=== PATIENT | male | born 1990 | race Caucasian/White ===

== ENCOUNTER 2018-03-13 10:44 | Emergency (ER) | payer SELFPAY ==
[2018-03-13] MEDS ORDERED: BUPIVACAINE 0.5% PF 10 ML VIAL ONE (11:04)
[2018-03-13] MEDS ORDERED: TETANUS & DIPHTHERIA TOX,ADULT 0.5 ML VIAL ONE (11:06)
--- NOTE | 2018-03-13 12:00 | EDPHYS ---
Physician Documentation [facility] Name: Ned Bryant Age: 27 yrs Sex: Male : 1990 Arrival Date: 03/13/2018 Time: 10:47 Bed 14 Private MD: None, None ED Physician Sohan Montejo HPI: 03/13 11:00 This 27 yrs old Male presents to ER via Ambulatory with complaints of Arm jmm Injury. 11:00 The patient or guardian complains of injury, a laceration. The complaints affect the jmm dorsal aspect of left forearm. Onset: The symptoms/episode began/occurred acutely, just prior to arrival. Modifying factors: The symptoms are alleviated by nothing. the symptoms are aggravated by nothing. Associated signs and symptoms: Pertinent negatives: deformity, erythema, fever. This is a 27 year old male with no chronic medical conditions that presents to the ED with a left arm laceration. The patient states that an AC coil scrapped his forearm while working on an AC UNIT. Patient is not UTD on tetanus immunzation. . Historical: - Allergies: 11:01 No Known Allergies; ph - Home Meds: 11: None [Active]; ph - PMHx: 11:01 None; ph - PSHx: 11:01 Knee surgery; ph - Immunization history:: Last tetanus immunization: unknown. - Social history:: Smoking status: Patient uses tobacco products, smokes one-half pack cigarettes per day. - Ebola Screening: : No symptoms or risks identified at this time. ROS: 11:00 Constitutional: Negative for fever, chills, and weight loss, Cardiovascular: Negative jmm for chest pain, palpitations, and edema, Respiratory: Negative for shortness of breath, cough, wheezing, and pleuritic chest pain. 11:00 MS/extremity: Positive for laceration. 11:00 Skin: Positive for laceration(s). 11:00 All other systems are negative. Exam: 11:00 Constitutional: This is a well developed, well nourished patient who is awake, alert, jmm and in no acute distress. Head/Face: atraumatic. Chest/axilla: Normal chest wall appearance and motion. Cardiovascular: Regular rate and rhythm. No edema appreciated Respiratory: Normal respirations, no respiratory distress appreciated Abdomen/GI: Non distended, soft Back: Normal ROM 11:00 Musculoskeletal/extremity: 6 cm laceration noted to the left forearm, FROM appreciated, no bony tenderness, compartments are soft, NVI. 11:00 Skin: Appearance: Color: normal in color. 11:00 Neuro: Orientation: is normal, Mentation: is normal, Memory: is normal, Gait: is steady. 11:00 Psych: Behavior/mood is pleasant, cooperative. Vital Signs: 11:00 BP 119 / 86; Pulse 71; Resp 18; Temp 97.9; Pulse Ox 98% on R/A; Weight 113.4 kg; Height ph 5 ft. 11 in. (180.34 cm); Pain 6/10; 12:08 BP 110 / 86; Pulse 67; Resp 16; Pulse Ox 99% on R/A; mb3 11:00 Body Mass Index 34.87 (113.40 kg, 180.34 cm) ph Laceration: 11:00 Wound Repair of 6cm ( 2.4in ) subcutaneous laceration to dorsal aspect of left forearm. jmm Distal neuro/vascular/tendon intact. Anesthesia: Local anesthetic administered with 5 mls of 0.5% marcaine. Wound prep: Moderate cleansing with betadine by ok, Copious irrigation. Skin closed with 12 4-0 Prolene using simple sutures and sterile technique. Dressed with non-adherent dressing. Patient tolerated well. MDM: 11:01 Patient medically screened. alvin 11:57 Data reviewed: vital signs, nurses notes. Counseling: I had a detailed discussion with alvin the patient and/or guardian regarding: the historical points, exam findings, and any diagnostic results supporting the discharge/admit diagnosis, the presence of at least one elevated blood pressure reading (>120/80) during this emergency department visit, the need for outpatient follow up, to return to the emergency department if symptoms worsen or persist or if there are any questions or concerns that arise at home. Administered Medications: 11:05 Drug: Tetanus-Diphtheria Toxoid Adult 0.5 ml {Casting Supervisor: Zhenai. Exp: mb3 05/14/2020. Lot #: [id number]. } Route: IM; Site: right deltoid; 12:10 Follow up: Response: No adverse reaction mb3 Disposition: 18:05 Co-signature as Attending Physician, Sohan Montejo MD. rn Disposition: 03/13/18 12:00 Discharged to Home. Impression: Forearm Laceration. - Condition is Stable. - Discharge Instructions: Laceration Care, Adult. - Medication Reconciliation Form, Thank You Letter, Antibiotic Education, Prescription Opioid Use form. - Follow up: Private Physician; When: 7 - 10 days; Reason: Recheck today's complaints, Continuance of care, Staple/Suture removal, Re-evaluation by your physician. Signatures: Jaun Dale PA PA jmm Nieto, Roman, MD MD rn Hall, Patricia, RN RN Dario Hernandez RN RN mb3 Corrections: (The following items were deleted from the chart) 12:10 12:00 03/13/2018 12:00 Discharged to Home. Impression: Forearm Laceration. Condition is mb3 Stable. Forms are Medication Reconciliation Form, Thank You Letter, Antibiotic Education, Prescription Opioid Use. Follow up: Private Physician; When: 7 - 10 days; Reason: Recheck today's complaints, Continuance of care, Staple/Suture removal, Re-evaluation by your physician. alvin
--- NOTE | 2018-03-13 12:00 | ER ---
Nurse's Notes [facility] Name: Ned Bryant Age: 27 yrs Sex: Male : 1990 Arrival Date: 03/13/2018 Time: 10:47 Bed 14 Private MD: None, None Diagnosis: Forearm Laceration Presentation: 03/13 10:58 Presenting complaint: Patient states: I was rolling coil at work and a piece of it ph sliced my arm ..Laceration noted to posterior aspect of R forearm, bleeding controlled, CMS intact. Transition of care: patient was not received from another setting of care. Onset of symptoms was March 13, 2018. Risk Assessment: Do you want to hurt yourself or someone else? Patient reports no desire to harm self or others. Initial Sepsis Screen: Does the patient meet any 2 criteria? No. Patient's initial sepsis screen is negative. Does the patient have a suspected source of infection? No. Patient's initial sepsis screen is negative. Care prior to arrival: None. 10:58 Method Of Arrival: Ambulatory 10:58 Acuity: PANCHITO 4 ph Historical: - Allergies: 11:01 No Known Allergies; ph - Home Meds: 11:01 None [Active]; ph - PMHx: 11:01 None; ph - PSHx: 11:01 Knee surgery; ph - Immunization history:: Last tetanus immunization: unknown. - Social history:: Smoking status: Patient uses tobacco products, smokes one-half pack cigarettes per day. - Ebola Screening: : No symptoms or risks identified at this time. Screenin:09 Abuse screen: Denies threats or abuse. Nutritional screening: No deficits noted. mb3 Tuberculosis screening: No symptoms or risk factors identified. Fall Risk None identified. Assessment: 11:07 General: Appears in no apparent distress. comfortable, Behavior is calm, cooperative, mb3 appropriate for age. Pain: Complains of pain in palmar aspect of left forearm. Neuro: No deficits noted. Cardiovascular: No deficits noted. Respiratory: No deficits noted. GI: No deficits noted. No signs and/or symptoms were reported involving the gastrointestinal system. : No deficits noted. No signs and/or symptoms were reported regarding the genitourinary system. Musculoskeletal: No deficits noted. No signs and/or symptoms reported regarding the musculoskeletal system. Circulation, motion, and sensation intact. Capillary refill < 3 seconds, Range of motion: intact in all extremities. Injury Description: Laceration sustained to palmar aspect of left forearm is 2.6 to 7.5 cm long, not bleeding, was sustained 30-60 minutes ago. a small amount of bleeding noted at this time. Vital Signs: 11:00 BP 119 / 86; Pulse 71; Resp 18; Temp 97.9; Pulse Ox 98% on R/A; Weight 113.4 kg; Height ph 5 ft. 11 in. (180.34 cm); Pain 6/10; 12:08 BP 110 / 86; Pulse 67; Resp 16; Pulse Ox 99% on R/A; mb3 11:00 Body Mass Index 34.87 (113.40 kg, 180.34 cm) ph ED Course: 10:47 Patient arrived in ED. sb2 10:47 None, None is Private Physician. sb2 10:53 Jaun Dale PA is PHCP. [facility] 10:53 Sohan Montejo MD is Attending Physician. [facility] 10:55 Dario Garcia, IVY is Primary Nurse. mb3 11:00 Triage completed. ph 11:01 Arm band placed on. ph 11:01 Patient has correct armband on for positive identification. Bed in low position. Call ph light in reach. Side rails up X 1. Pulse ox on. NIBP on. 12:09 Assist provider with laceration repair using sutures. Set up tray. Performed by Jaun DESIR Dressed with 4X4s, Adaptic, Stefani, Neosporin. Patient did not have IV access during this emergency room visit. Administered Medications: 11:05 Drug: Tetanus-Diphtheria Toxoid Adult 0.5 ml {Dredgemaster: [employer]. Exp: mb3 05/14/2020. Lot #: [id number]. } Route: IM; Site: right deltoid; 12:10 Follow up: Response: No adverse reaction mb3 Outcome: 12:00 Discharge ordered by . alvin 12:09 Discharged to home ambulatory. mb3 12:09 Condition: stable 12:09 Discharge instructions given to patient, Instructed on discharge instructions, follow up and referral plans. wound care, Demonstrated understanding of instructions, follow-up care, wound care. 12:10 Patient left the ED. mb3 Signatures: Jaun Dale PA PA jmm Hall, Patricia, RN RN ph Agnes Mirza sb2 Dario Garcia RN RN mb3
== END 2018-03-13 12:10 | disposition home or self-care (01) ==
LOC: ER 10:44
PROC: 0JQH0ZZ Repair Left Lower Arm Subcutaneous Tissue and Fascia, Open Approach (ICD-10-PCS; principal; 2018-03-13)
DX: S51.812A Laceration without foreign body of left forearm, initial encounter (principal); W31.89XA Contact with other specified machinery, initial encounter; Y93.89 Activity, other specified; Y92.009 Unspecified place in unspecified non-institutional (private) residence as the place of occurrence of the external cause; F17.210 Nicotine dependence, cigarettes, uncomplicated
CPT/HCPCS: 90714; 99283

== ENCOUNTER 2019-08-22 09:57 | Emergency (ER) | payer SELFPAY ==
[2019-08-22] MEDS ORDERED: LIDOCAINE 1% MPF 5 ML VIAL ONE (10:15)
--- NOTE | 2019-08-22 11:07 | EDPHYS ---
Physician Documentation [facility] Name: Ned Bryant Age: 29 yrs Sex: Male : 1990 Arrival Date: 08/22/2019 Time: 09:59 Bed 13 Private MD: ED Physician Humberto Boyle HPI: 08/22 10:26 This 29 yrs old Male presents to ER via Ambulatory with complaints of la1 Laceration To Arm. 10:26 The patient has a laceration related to: drinking occurred at home, and there are no la1 complicating factors. The laceration(s) is(are) located on the dorsal aspect of left forearm. Onset: The symptoms/episode began/occurred this morning. Associated signs and symptoms: Pertinent negatives: heavy bleeding, numbness distal to injury, suspected foreign body. The patient has not experienced similar symptoms in the past. Pt reports he was drinking and got cut by a knife he was using to cut meat earlier in the day with. tetanus UTD, no neurovascular deficits. . Historical: - Allergies: 10:06 No Known Allergies; sr5 - Home Meds: 10:06 None [Active]; sr5 - PMHx: 10:06 None; sr5 - PSHx: 10:06 Knee surgery; sr5 - Immunization history:: Last tetanus immunization: up to date. - Social history:: Smoking status: Patient uses tobacco products, denies chronic smoking, but will smoke occasionally. - Ebola Screening: : Patient negative for fever greater than or equal to 101.5 degrees Fahrenheit, and additional compatible Ebola Virus Disease symptoms. ROS: 10:27 Constitutional: Negative for fever, chills, and weight loss, Eyes: Negative for injury, la1 pain, redness, and discharge, ENT: Negative for injury, pain, and discharge, Neck: Negative for injury, pain, and swelling, Cardiovascular: Negative for chest pain, palpitations, and edema, Respiratory: Negative for shortness of breath, cough, wheezing, and pleuritic chest pain, Abdomen/GI: Negative for abdominal pain, nausea, vomiting, diarrhea, and constipation, Back: Negative for injury and pain, MS/Extremity: Negative for injury and deformity. 10:27 Neuro: Negative for headache, weakness, numbness, tingling, and seizure. 10:27 Skin: Positive for laceration(s). Exam: 10:27 Constitutional: This is a well developed, well nourished patient who is awake, alert, la1 and in no acute distress. Head/Face: Normocephalic, atraumatic. Eyes: Pupils equal round and reactive to light, extra-ocular motions intact. Chest/axilla: Normal chest wall appearance and motion. Nontender with no deformity. No lesions are appreciated. MS/ Extremity: Pulses equal, no cyanosis. Neurovascular intact. Full, normal range of motion. 10:27 Skin: injury, laceration(s), the wound is approximately 5 cm(s), with a depth of 1.5 cm(s), of the dorsal aspect of left forearm, that can be described as clean, no foreign body, irregular, with mild bleeding. Vital Signs: 10:06 BP 110 / 79; Pulse 80; Resp 16; Temp 97.3; Pulse Ox 100% ; Weight 117.93 kg (R); Height sr5 5 ft. 10 in. (177.80 cm); Pain 2/10; 11:00 BP 106 / 75; Pulse 83; Resp 17; Pulse Ox 100% on R/A; Pain 0/10; rb1 10:06 Body Mass Index 37.31 (117.93 kg, 177.80 cm) sr5 Laceration: 11:03 Wound Repair of 6cm ( 2.4in ) subcutaneous laceration to dorsal aspect of left forearm. la1 Irregularly shaped.. Hemostasis noted.. Distal neuro/vascular/tendon intact. Anesthesia: Local anesthetic administered with 5 mls of 1% lidocaine. Wound prep: Extensive cleansing, Wound irrigation with saline by pa, Copious irrigation. Skin closed with 6 4-0 Prolene using simple sutures and sterile technique. Skin closed with 2 4-0 Prolene using horizontal mattress sutures and sterile technique. Patient tolerated well. MDM: 10:14 Patient medically screened. la1 11:04 Data reviewed: vital signs, nurses notes, I have discussed the patient's la1 presentation/case with the attending Emergency Department Physician; and as a result, I will discharge patient. Data interpreted: Pulse oximetry: on room air is 100 %. Interpretation: normal. Counseling: I had a detailed discussion with the patient and/or guardian regarding: the historical points, exam findings, and any diagnostic results supporting the discharge/admit diagnosis, the need for outpatient follow up, a family practitioner, to return to the emergency department if symptoms worsen or persist or if there are any questions or concerns that arise at home. Special discussion: I discussed in detail with the patient the higher chance of wound infection based on his presenting history. Based on the history and exam findings, there is no indication for further emergent testing or inpatient evaluation. I discussed with the patient/guardian the need to see the primary care provider for further evaluation of the symptoms. 08/22 10:26 Order name: Suture Tray at Bedside; Complete Time: 10:49 la1 Administered Medications: 10:40 Drug: Lidocaine (1 %) 5 mg Route: Infiltration; rb1 Disposition: 19:49 Co-signature as Attending Physician, Humberto Boyle MD I agree with the assessment and christy plan of care. Disposition: 08/22/19 11:06 Discharged to Home. Impression: Laceration without foreign body of left forearm. - Condition is Stable. - Discharge Instructions: Sutured Wound Care, Laceration Care, Adult, [id number], Sutured Wound Care, [id number]. - Prescriptions for Keflex 500 mg Oral Capsule - take 1 capsule by ORAL route every 6 hours for 7 days; 28 capsule. - Medication Reconciliation Form, Thank You Letter, Antibiotic Education form. - Follow up: Private Physician; When: 7 - 10 days; Reason: Wound Recheck, Recheck today's complaints, Re-evaluation by your physician. - Problem is new. - Symptoms have improved. Signatures: Humberto Boyle MD MD cha Attema, Lee, TARGET SETTER-C TARGET SETTER-[facility] Leah Ca, RN RN rb1 Julio Dozier RN RN sr5 Corrections: (The following items were deleted from the chart) 11:18 11:06 08/22/2019 11:06 Discharged to Home. Impression: Laceration without foreign body rb1 of left forearm. Condition is Stable. Forms are Medication Reconciliation Form, Thank You Letter, Antibiotic Education, Prescription Opioid Use. Follow up: Private Physician; When: 7 - 10 days; Reason: Wound Recheck, Recheck today's complaints, Re-evaluation by your physician. Problem is new. Symptoms have improved. la1
--- NOTE | 2019-08-22 11:07 | ER ---
Nurse's Notes [facility] Name: Ned Bryant Age: 29 yrs Sex: Male : 1990 Arrival Date: 08/22/2019 Time: 09:59 Bed 13 Private MD: Diagnosis: Laceration without foreign body of left forearm Presentation: 08/22 10:03 Presenting complaint: Patient states: LAC left arm, bleeding controlled at this time sr5 with dry gauze bandage applied. Reports injury sustained last night after falling off ladder while intoxicated. Denies head/neck injury, ambulatory. Reports only concern is LEFT arm wound. Transition of care: patient was not received from another setting of care. Complicating Factors: There are no complicating factors for this patient. Onset of symptoms was August 21, 2019. Risk Assessment: Do you want to hurt yourself or someone else? Patient reports no desire to harm self or others. Initial Sepsis Screen: Does the patient meet any 2 criteria? No. Patient's initial sepsis screen is negative. Care prior to arrival: None. 10:03 Method Of Arrival: Ambulatory sr5 10:03 Acuity: PANCHITO 3 sr5 10:08 Initial Sepsis Screen: Does the patient have a suspected source of infection? Yes: Skin rb1 breakdown/wound. Triage Assessment: 10:06 General: Appears in no apparent distress. Behavior is calm, cooperative. Pain: sr5 Complains of pain in dorsal aspect of left forearm Pain currently is 2 out of 10 on a pain scale. Neuro: No deficits noted. Cardiovascular: No deficits noted. Respiratory: No deficits noted. Historical: - Allergies: 10:06 No Known Allergies; sr5 - Home Meds: 10:06 None [Active]; sr5 - PMHx: 10:06 None; sr5 - PSHx: 10:06 Knee surgery; sr5 - Immunization history:: Last tetanus immunization: up to date. - Social history:: Smoking status: Patient uses tobacco products, denies chronic smoking, but will smoke occasionally. - Ebola Screening: : Patient negative for fever greater than or equal to 101.5 degrees Fahrenheit, and additional compatible Ebola Virus Disease symptoms. Screenin:13 Abuse screen: Denies threats or abuse. Nutritional screening: No deficits noted. rb1 Tuberculosis screening: No symptoms or risk factors identified. Fall Risk None identified. Assessment: 10:13 General: Appears in no apparent distress. comfortable, Behavior is calm, cooperative. rb1 Neuro: Level of Consciousness is awake, alert, obeys commands, Oriented to person, place, time, situation. Cardiovascular: Capillary refill < 3 seconds is brisk in bilateral fingers. Respiratory: Airway is patent Respiratory effort is even, unlabored, Respiratory pattern is regular, symmetrical. GI: No signs and/or symptoms were reported involving the gastrointestinal system. : No signs and/or symptoms were reported regarding the genitourinary system. Derm: Skin is pink, warm \T\ dry. Musculoskeletal: Range of motion: intact in all extremities. Injury Description: Laceration is jagged, bleeding controlled. Dry gauze in place on left forearm was sustained 12-24 hours ago. is bleeding a dressing was applied. 10:55 Reassessment: Provider at the bedside performing laceration repair. rb1 11:00 Reassessment: Patient appears in no apparent distress at this time. Patient and/or rb1 family updated on plan of care and expected duration. Pain level reassessed. Patient is alert, oriented x 3, equal unlabored respirations, skin warm/dry/pink. Applied non-adherent gauze and wrapped with Kerlix. Pt. tolerated well. Vital Signs: 10:06 BP 110 / 79; Pulse 80; Resp 16; Temp 97.3; Pulse Ox 100% ; Weight 117.93 kg (R); Height sr5 5 ft. 10 in. (177.80 cm); Pain 2/10; 11:00 BP 106 / 75; Pulse 83; Resp 17; Pulse Ox 100% on R/A; Pain 0/10; rb1 10:06 Body Mass Index 37.31 (117.93 kg, 177.80 cm) sr5 ED Course: 09:59 Patient arrived in ED. as 10:06 Triage completed. sr5 10:06 Arm band placed on. sr5 10:13 Patient has correct armband on for positive identification. Bed in low position. Call rb1 light in reach. Side rails up X 1. Pulse ox on. NIBP on. 10:14 Zia Dickerson FNP-C is PHCP. la1 10:14 Humbreto Boyle MD is Attending Physician. la1 10:51 Leah Ca, IVY is Primary Nurse. rb1 11:16 No provider procedures requiring assistance completed. Patient did not have IV access rb1 during this emergency room visit. Administered Medications: 10:40 Drug: Lidocaine (1 %) 5 mg Route: Infiltration; rb1 Outcome: 11:06 Discharge ordered by MD. ontiveros 11:16 Discharged to home ambulatory. rb1 11:16 Condition: stable 11:16 Discharge instructions given to patient, Instructed on discharge instructions, follow up and referral plans. medication usage, Demonstrated understanding of instructions, follow-up care, medications, Prescriptions given X 1. 11:18 Patient left the ED. rb1 Signatures: Yesenia Ortega Lee, [employer] Leah Ca, RN RN rb1 Julio Dozier RN RN sr5 Corrections: (The following items were deleted from the chart) 11:18 11:00 Reassessment: Patient appears in no apparent distress at this time. Patient rb1 and/or family updated on plan of care and expected duration. Pain level reassessed. Patient is alert, oriented x 3, equal unlabored respirations, skin warm/dry/pink. rb1
[2019-08-22 11:23] VITALS: TEMP 97.3; O2SAT 100
[2019-08-22 11:24] VITALS: BP 106/75
== END 2019-08-22 11:18 | disposition home or self-care (01) ==
LOC: ER 09:57
PROC: 0JQH0ZZ Repair Left Lower Arm Subcutaneous Tissue and Fascia, Open Approach (ICD-10-PCS; principal; 2019-08-22)
DX: S51.812A Laceration without foreign body of left forearm, initial encounter (principal); W26.0XXA Contact with knife, initial encounter; Y93.89 Activity, other specified; Y92.009 Unspecified place in unspecified non-institutional (private) residence as the place of occurrence of the external cause
CPT/HCPCS: 99283

== ENCOUNTER 2021-08-29 11:36 | Emergency (ER) | payer SELFPAY ==
[2021-08-29 13:46] LABS: SARS-COV-2 RT PCR POSITIVE (NEGATIVE)
--- NOTE | 2021-08-29 13:50 | EDPHYS ---
Physician Documentation [facility] Name: Ned Bryant Age: 31 yrs Sex: Male : 1990 Arrival Date: 08/29/2021 Time: 11:43 Bed Waiting Private MD: ED Physician Sohan Montejo HPI: 08/29 13:46 This 31 yrs old Male presents to ER via Ambulatory with complaints of Fever, bodyaches, kb Headache, sweats. 13:46 The patient or guardian reports flu symptoms, low-grade fever, myalgias. Onset: The kb symptoms/episode began/occurred yesterday. Severity of symptoms: At their worst the symptoms were moderate, in the emergency department the symptoms are unchanged. Modifying factors: The symptoms are alleviated by nothing, the symptoms are aggravated by nothing. Associated signs and symptoms: Pertinent positives: fever, Pertinent negatives: chest pain, diarrhea, ear ache, nausea, rhinorrhea, sore throat, vomiting. The patient has not experienced similar symptoms in the past. The patient has not recently seen a physician. Pt reports fever, bodyaches, congestion and headache since yesterday. Historical: - Allergies: 12:08 No Known Allergies; ll1 - PMHx: 12:08 None; ll1 - PSHx: 12:08 None; ll1 - Immunization history:: Client reports having NOT received the Covid vaccine. Flu vaccine status is unknown. - Social history:: Smoking status: Patient reports the use of cigarette tobacco products, denies chronic smoking, but will smoke occasionally. ROS: 13:45 Respiratory: Negative for shortness of breath, cough, wheezing, and pleuritic chest kb pain. 13:45 Constitutional: Positive for body aches, chills, fatigue, fever, malaise. 13:45 ENT: Positive for sinus congestion. 13:45 Neuro: Positive for headache. 13:45 All other systems are negative. Exam: 13:45 Constitutional: This is a well developed, well nourished patient who is awake, alert, kb and in no acute distress. Head/Face: Normocephalic, atraumatic. ENT: Moist Mucous membranes Cardiovascular: Regular rate and rhythm with a normal S1 and S2. No gallops, murmurs, or rubs. No pulse deficits. Respiratory: Respirations even and unlabored. No increased work of breathing. Talking in full sentences Skin: Warm, dry with normal turgor. Normal color. MS/ Extremity: Pulses equal, no cyanosis. Neurovascular intact. Full, normal range of motion. Neuro: Awake and alert, GCS 15, oriented to person, place, time, and situation. Moves all extremities. Normal gait. Psych: Awake, alert, with orientation to person, place and time. Behavior, mood, and affect are within normal limits. Vital Signs: 12:07 BP 141 / 76; Pulse 100; Resp 17; Temp 96.7(TE); Pulse Ox 100% ; Weight 104.33 kg; ll1 Height 5 ft. 11 in. (180.34 cm); Pain 6/10; 12:07 Body Mass Index 32.08 (104.33 kg, 180.34 cm) ll1 MDM: 12:15 Patient medically screened. kb 13:46 Data reviewed: vital signs, nurses notes. Data interpreted: Pulse oximetry: on room air kb is 100 %. Interpretation: normal. Counseling: I had a detailed discussion with the patient and/or guardian regarding: the historical points, exam findings, and any diagnostic results supporting the discharge/admit diagnosis, lab results, the need for outpatient follow up, a family practitioner, to return to the emergency department if symptoms worsen or persist or if there are any questions or concerns that arise at home. 08/29 12:14 Order name: COVID-19/FLU A+B (Document "Date of Onset" if Symptomatic); Complete Time: kb 13:49 Administered Medications: No medications were administered Disposition: 17:44 Co-signature as Attending Physician, Sohan Montejo MD I agree with the assessment and rn plan of care. Attestation: The patient's history, exam findings, diagnostics, and a summary of any interventions or procedures was reviewed in detail with Fabby ABREU. Disposition Summary: 08/29/21 13:49 Discharge Ordered Location: Home Condition: Stable kb Diagnosis - Coronavirus infection, unspecified kb Followup: kb - With: Emergency Department - When: As needed - Reason: Worsening of condition Followup: kb - With: Private Physician - When: 2 - 3 days - Reason: Recheck today's complaints, Continuance of care, Re-evaluation by your physician Discharge Instructions: - Discharge Summary Sheet kb - Viral Respiratory Infection, [id number] kb - COVID-19 kb Forms: - Medication Reconciliation Form kb - Thank You Letter kb - Antibiotic Education kb - Prescription Opioid Use kb - Work release form ll1 Signatures: Dispatcher [employer] Fabby Babb FNP-C FNP-Ckb Nieto, Roman, MD MD rn Lewis, Lynsay, RN RN ll1
--- NOTE | 2021-08-29 13:50 | ER ---
Nurse's Notes [facility] Name: Ned Bryant Age: 31 yrs Sex: Male : 1990 Arrival Date: 08/29/2021 Time: 11:43 Bed Waiting Private MD: Diagnosis: Coronavirus infection, unspecified Presentation: 08/29 12:07 Chief complaint: Patient states: [place], fever, body aches, sweats for 2 days. Coronavirus ll1 screen: Vaccine status: Patient reports being unvaccinated. Client denies travel out of the [place] in the last 14 days. congestion, cough unrelated to allergies, fatigue, fever, headache, Client presents with at least one sign or symptom that may indicate coronavirus-19. Standard/surgical mask placed on the client. Ebola Screen: Patient denies travel to an Ebola-affected area in the 21 days before illness onset. Initial Sepsis Screen: Does the patient meet any 2 criteria? No. Patient's initial sepsis screen is negative. Does the patient have a suspected source of infection? Yes: Productive cough/pneumonia. Risk Assessment: Do you want to hurt yourself or someone else? Patient reports no desire to harm self or others. Onset of symptoms was August 28, 2021. 12:07 Method Of Arrival: Ambulatory ll1 12:07 Acuity: PANCHITO 4 ll1 Triage Assessment: 12:10 Headache History: Denies prior headaches. General: Appears in no apparent distress. ll1 Behavior is calm, cooperative, appropriate for age. Pain: Complains of pain in head Pain currently is 3 out of 10 on a pain scale. Pain began 2-3 days ago. Also complains of no other associated symptoms. EENT: Reports nasal congestion. Neuro: Reports headache. Cardiovascular: No deficits noted. Respiratory: No deficits noted. Musculoskeletal: Reports body aches. Historical: - Allergies: 12:08 No Known Allergies; ll1 - PMHx: 12:08 None; ll1 - PSHx: 12:08 None; ll1 - Immunization history:: Client reports having NOT received the Covid vaccine. Flu vaccine status is unknown. - Social history:: Smoking status: Patient reports the use of cigarette tobacco products, denies chronic smoking, but will smoke occasionally. Screenin:10 Abuse screen: Denies threats or abuse. Nutritional screening: No deficits noted. ll1 Tuberculosis screening: No symptoms or risk factors identified. Fall Risk Total Marcum Fall Scale indicates No Risk (0-24 pts). Assessment: 13:10 Reassessment: No changes from previously documented assessment. Patient and/or family ll1 updated on plan of care and expected duration. Pain level reassessed. Patient is alert, oriented x 3, equal unlabored respirations, skin warm/dry/pink. Pain: Denies pain. 14:10 Reassessment: No changes from previously documented assessment. Patient and/or family ll1 updated on plan of care and expected duration. Pain level reassessed. Patient is alert, oriented x 3, equal unlabored respirations, skin warm/dry/pink. Vital Signs: 12:07 BP 141 / 76; Pulse 100; Resp 17; Temp 96.7(TE); Pulse Ox 100% ; Weight 104.33 kg; ll1 Height 5 ft. 11 in. (180.34 cm); Pain 6/10; 12:07 Body Mass Index 32.08 (104.33 kg, 180.34 cm) ll1 ED Course: 11:43 Patient arrived in ED. am2 12:02 Fabby Yancey FNP-C is PSYCHIATRICP. kb 12:02 Sohan Montejo MD is Attending Physician. kb 12:08 Triage completed. ll1 12:08 Patient has correct armband on for positive identification. Cardiac monitoring not ll1 applicable on this patient. 12:09 Arm band placed on. ll1 14:41 No provider procedures requiring assistance completed. Patient did not have IV access ll1 during this emergency room visit. Administered Medications: No medications were administered Outcome: 13:49 Discharge ordered by . kb 14:41 Patient left the ED. ll1 14:41 Discharged to home ambulatory. ll1 14:41 Condition: stable 14:41 Discharge instructions given to patient, Instructed on discharge instructions, follow up and referral plans. Demonstrated understanding of instructions, follow-up care. Signatures: Fabby Yancey FNP-C FNP-Ckb Moreno, Amanda am2 Luke Riley RN RN ll1 Corrections: (The following items were deleted from the chart) 12:10 12:07 Resp 17bpm; 104.33 kg; Height 5 ft. 11 in.; BMI: 32.0; Pain 6/10; ll1 ll1
[2021-08-29 14:46] VITALS: BP 141/76; TEMP 96.7; O2SAT 100
== END 2021-08-29 14:41 | disposition home or self-care (01) ==
LOC: ER 11:36
DX: U07.1 COVID-19 (principal); F17.210 Nicotine dependence, cigarettes, uncomplicated
CPT/HCPCS: 0240U; 99281